=== PATIENT | female | born 1950 | race Caucasian/White ===

== ENCOUNTER 2025-01-28 06:23 | Inpatient (IN) | payer MEDICARE, OTHER ==
[~2025-01-28] VITALS: Ht 157.5 cm; Wt 86.2 kg
[2025-01-28] MEDS ORDERED: BUPIVACAINE 0.5 % PF 150 MG/30 ML VIAL ONE (07:08)
[2025-01-28] MEDS ORDERED: LIDOCAINE 2%-EPI 1:100,000 30 ML VIAL ONE (07:08)
[2025-01-28] MEDS ORDERED: FENTANYL PF 250MCG/5ML AMPUL ONE (07:11)
[2025-01-28] MEDS ORDERED: ROCURONIUM BROMIDE 50 MG/5 ML ONE (07:12)
[2025-01-28] MEDS ORDERED: VANCOMYCIN 1 GM VIAL ONE ×2 (08:04→08:10)
[2025-01-28] MEDS ORDERED: dexaMETHasone SOD PHOSPHATE 1 ML ONE (08:04)
[2025-01-28] MEDS ORDERED: GENTAMICIN 80 MG/2 ML VIAL ONE (08:10)
[2025-01-28] MEDS ORDERED: LABETALOL HCL IV 100MG VIAL ONE (10:17)
[2025-01-28 12:25] VITALS: BP 100/75; O2SAT 96
[2025-01-28] MEDS ORDERED: ACETAMINOPHEN 325 MG TABLET PO PRN ×2 (12:30→14:30)
[2025-01-28] MEDS ORDERED: ONDANSETRON HCL/PF 4 MG/2 ML VIAL IV PRN (12:30)
[2025-01-28] MEDS ORDERED: HYDROMORPHONE 1 MG/1 ML DISP.SYRIN IV PRN (12:30)
[2025-01-28 13:13] VITALS: O2SAT 97
[2025-01-28] MEDS: IV NS 0.9% 1,000 ML IV PRN (14:19)
[2025-01-28] MEDS ORDERED: MAG HYDROX/AL HYDROX/SIMETH 30 ML UDC PO PRN (14:30)
[2025-01-28] MEDS ORDERED: Z GUARD REMEDY 4 OZ OINT TP PRN (14:30)
[2025-01-28] MEDS ORDERED: MAGNESIUM HYDROXIDE 30 ML UDC PO PRN (14:30)
[2025-01-28] MEDS ORDERED: ONDANSETRON HCL/PF 4 MG/2 ML VIAL IVP PRN (14:30)
[2025-01-28] MEDS ORDERED: GLIP5TAB13 PO (14:43)
[2025-01-28] MEDS ORDERED: VALS1TAB4 PO (14:43)
[2025-01-28] MEDS ORDERED: PRAV80TA21 PO (14:43)
[2025-01-28] MEDS ORDERED: INSU100I26 SQ (14:43)
[2025-01-28] MEDS ORDERED: HYDR-4077 PO (14:43)
[2025-01-28] MEDS ORDERED: OMEP20CA15 PO (14:43)
[2025-01-28] MEDS ORDERED: FOLI0.4T6 PO (14:43)
[2025-01-28] MEDS ORDERED: EZET10TA16 PO (14:43)
[2025-01-28] MEDS ORDERED: CARV12.52 PO (14:43)
[2025-01-28] MEDS ORDERED: ASPI-1420 PO (14:43)
[2025-01-28] MEDS ORDERED: SENN-175 PO (14:43)
[2025-01-28] MEDS ORDERED: AMLO-212 PO (14:43)
[2025-01-28] MEDS ORDERED: ERGO500093 PO (14:43)
[2025-01-28] MEDS ORDERED: GABA-532 PO (14:43)
[2025-01-28] MEDS ORDERED: METF-99 PO (14:43)
[2025-01-28] MEDS ORDERED: EMPA25TA PO (14:43)
[2025-01-28 16:00] VITALS: BP 95/61; TEMP 97.3; O2SAT 92
[2025-01-28] MEDS: VANCOMYCIN 1 GM in IV D5W 250ml IV SCH (18:00)
[2025-01-28 18:30] VITALS: O2SAT 92
[2025-01-28 18:46] VITALS: O2SAT 98
[2025-01-28 20:00] VITALS: BP 101/67; TEMP 97.7; O2SAT 93; O2SAT 96
[2025-01-29 08:00] VITALS: BP 145/69; TEMP 98.4; O2SAT 95
[2025-01-29] MEDS: P-EPHED SUL/LORATADINE (24H) 1 TAB.SR.24H PO SCH (09:16)
== END 2025-01-29 12:05 | disposition home or self-care (01) | DRG 141 ==
LOC: DS 06:23 → MED 11:32
PROVIDERS: ADMIT Internal Medicine; ATTEND Internal Medicine
PROC: 0NBR0ZZ Excision of Maxilla, Open Approach (ICD-10-PCS; 2025-01-28)
PROC: 0NBT0ZZ Excision of Right Mandible, Open Approach (ICD-10-PCS; 2025-01-28)
PROC: 0NSV04Z Reposition Left Mandible with Internal Fixation Device, Open Approach (ICD-10-PCS; 2025-01-28)
PROC: 0NSR04Z Reposition Maxilla with Internal Fixation Device, Open Approach (ICD-10-PCS; 2025-01-28)
PROC: 0NST04Z Reposition Right Mandible with Internal Fixation Device, Open Approach (ICD-10-PCS; 2025-01-28)
PROC: 0NUV07Z Supplement Left Mandible with Autologous Tissue Substitute, Open Approach (ICD-10-PCS; 2025-01-28)
PROC: 0NUR07Z Supplement Maxilla with Autologous Tissue Substitute, Open Approach (ICD-10-PCS; 2025-01-28)
PROC: 0NUT07Z Supplement Right Mandible with Autologous Tissue Substitute, Open Approach (ICD-10-PCS; 2025-01-28)
PROC: 09UQ07Z Supplement Right Maxillary Sinus with Autologous Tissue Substitute, Open Approach (ICD-10-PCS; 2025-01-28)
PROC: 0NBV0ZZ Excision of Left Mandible, Open Approach (ICD-10-PCS; principal; 2025-01-28 07:30)
DX: M27.2 Inflammatory conditions of jaws (principal); S02.40CA Maxillary fracture, right side, initial encounter for closed fracture; S02.69XA Fracture of mandible of other specified site, initial encounter for closed fracture; S02.40DA Maxillary fracture, left side, initial encounter for closed fracture; T81.83XA Persistent postprocedural fistula, initial encounter; D16.4 Benign neoplasm of bones of skull and face; E78.5 Hyperlipidemia, unspecified; I10 Essential (primary) hypertension; K21.9 Gastro-esophageal reflux disease without esophagitis; Z79.4 Long term (current) use of insulin; E11.9 Type 2 diabetes mellitus without complications; X58.XXXA Exposure to other specified factors, initial encounter; Y93.9 Activity, unspecified; Y92.009 Unspecified place in unspecified non-institutional (private) residence as the place of occurrence of the external cause; D16.5 Benign neoplasm of lower jaw bone; K13.79 Other lesions of oral mucosa; J32.0 Chronic maxillary sinusitis
CPT/HCPCS: 36415; 71046; 80053-TC; 82962-TC; 85025-TC; 85610-TC; 85730-TC; 87081-TC; 88305-TC; 88311-TC; A4223; A4338; C1713; G0378; J0461; J0690; J1100; J1580; J2704; J3010; J3373; J3490; J7030; J7060